=== PATIENT | female | born 1950 | race Caucasian/White ===

== ENCOUNTER 2022-05-31 02:43 | Emergency (ER) | payer BC, OTHER ==
[~2022-05-31] VITALS: Ht 167.6 cm; Wt 87.5 kg
[~2022-05-31 02:43] MED LIST: ASPI-1155 PO; GLIP5TAB13 PO; LISI10TA PO; METF-379 PO; PRAV40TA63 PO
[2022-05-31 02:56] VITALS: BP_SYST 154
[2022-05-31 03:44] LABS: BASOPHILS # (AUTO) 0.1 K/uL (0.0-0.2); BASOPHILS % (AUTO) 0.4 % (0.0-2.0); EOSINOPHILS # (AUTO) 0.3 K/uL (0.0-0.4); EOSINOPHILS % (AUTO) 2.8 % (0.0-4.0); HEMATOCRIT 35.9 % (36-48); HEMOGLOBIN 11.7 g/dL (12.0-16.0); LYMPHOCYTES # (AUTO) 2.7 K/uL (1.0-5.5); LYMPHOCYTES % (AUTO) 24.2 % (20.5-51.5); MEAN CORPUSCULAR HEMOGLOBIN 27 pg (27-31); MEAN CORPUSCULAR HGB CONC 33 % (32-36); MEAN CORPUSCULAR VOLUME 83 fL (79.0-98.0); MONOCYTES # (AUTO) 1.1 K/uL (0.0-1.0); MONOCYTES % (AUTO) 10.1 % (1.7-9.3); NEUTROPHILS % (AUTO) 62.5 % (40.0-70.0); PLATELET COUNT (AUTO) 411 K/uL (130-430); RED BLOOD CELL COUNT(AUTO) 4.35 MIL/uL (4.2-6.2); RED CELL DISTRIBUTION WIDTH 14.9 % (9.0-15.0); WHITE BLOOD COUNT (AUTO) 11.2 K/uL (4.8-10.8)
[2022-05-31 03:54] LABS: ANION GAP 10 (5-15); CALCIUM 9.4 mg/dL (8.4-11.0); CHLORIDE 100 mmol/L (98-107); CREATININE 0.95 mg/dL (0.55-1.30); GLUCOSE 232 mg/dL (70-99); UREA NITROGEN, BLOOD 17 mg/dL (8-21)
[2022-05-31] MEDS ORDERED: PRED20TA PO (03:57)
[2022-05-31] MEDS ORDERED: ZIT250 PO (03:57)
[2022-05-31] MEDS ORDERED: ALBMDI INH (03:57)
[2022-05-31 04:04] LABS: ALANINE AMINOTRANSFERASE 19 U/L (12-78); ALBUMIN 3.2 g/dL (3.4-4.8); ASPARTATE AMINOTRANSFERASE 19 U/L (10-37); TOTAL BILIRUBIN 0.3 mg/dL (0.0-1.0)
[2022-05-31] MEDS ORDERED: BENZONATATE 100 MG CAPSULE (TESSALON) PO ONE (04:15)
[2022-05-31 04:34] VITALS: BP_SYST 136
== END 2022-05-31 04:34 | disposition home or self-care (01) ==
LOC: SED 02:43
DX: J40 Bronchitis, not specified as acute or chronic (principal); J18.9 Pneumonia, unspecified organism; R05.9 Cough, unspecified; R09.81 Nasal congestion; R06.02 Shortness of breath; E11.9 Type 2 diabetes mellitus without complications; Z79.899 Other long term (current) drug therapy; Z20.822 Contact with and (suspected) exposure to COVID-19
CPT/HCPCS: 36415; 71045; 80053; 83880; 84484; 85025; 93005; 99285

== ENCOUNTER 2022-08-25 21:14 | Inpatient (IN) | payer OTHER ==
[~2022-08-25] VITALS: Ht 165.1 cm; Wt 86.6 kg
[~2022-08-25 21:14] MED LIST changes: +ALBMDI INH; +PRED20TA PO; +ZIT250 PO
[2022-08-25] MEDS ORDERED: NS 1000 ML IV.SOLN IV ONE (21:30)
[2022-08-25] MEDS ORDERED: cefTRIAXone 1 GM in D5W 50 ML IV ONE (21:30)
[2022-08-25 21:37] VITALS: BP_SYST 147; PULSE 119; RESP 32; TEMP 97.6; O2SAT 93
[2022-08-25] MEDS ORDERED: ONDANSETRON HCL 4 MG/2 ML VIAL IVP ONE (21:45)
[2022-08-25] MEDS ORDERED: cefTRIAXone 1 GM VIAL ONE (21:50)
[2022-08-25 22:08] LABS: BASOPHILS # (AUTO) 0.1 K/uL (0.0-0.2); BASOPHILS % (AUTO) 0.6 % (0.0-2.0); EOSINOPHILS % (AUTO) 0.3 % (0.0-4.0); HEMATOCRIT 41.6 % (36-48); HEMOGLOBIN 13.4 g/dL (12.0-16.0); LYMPHOCYTES # (AUTO) 1.7 K/uL (1.0-5.5); LYMPHOCYTES % (AUTO) 11.8 % (20.5-51.5); MEAN CORPUSCULAR HEMOGLOBIN 27 pg (27-31); MEAN CORPUSCULAR HGB CONC 32 % (32-36); MEAN CORPUSCULAR VOLUME 83 fL (79.0-98.0); MONOCYTES % (AUTO) 6.8 % (1.7-9.3); NEUTROPHILS # (AUTO) 11.6 K/uL (1.8-7.7); NEUTROPHILS % (AUTO) 80.5 % (40.0-70.0); PLATELET COUNT (AUTO) 354 K/uL (130-430); RED BLOOD CELL COUNT(AUTO) 5.05 MIL/uL (4.2-6.2); RED CELL DISTRIBUTION WIDTH 15.3 % (9.0-15.0); WHITE BLOOD COUNT (AUTO) 14.4 K/uL (4.8-10.8)
[2022-08-25 22:27] LABS: ALANINE AMINOTRANSFERASE 43 U/L (12-78); ALBUMIN 3.9 g/dL (3.4-4.8); ANION GAP 12 (5-15); ASPARTATE AMINOTRANSFERASE 50 U/L (10-37); CALCIUM 9.5 mg/dL (8.4-11.0); CHLORIDE 101 mmol/L (98-107); CREATININE 0.89 mg/dL (0.55-1.30); GLUCOSE 171 mg/dL (74-106); TOTAL BILIRUBIN 0.4 mg/dL (0.0-1.0); UREA NITROGEN, BLOOD 17 mg/dL (8-21)
[2022-08-25 22:29] LABS: LIPASE 186 U/L (73-393)
[2022-08-25 23:08] LABS: BILIRUBIN,URINE NEGATIVE (NEGATIVE); CLARITY/URINE CLEAR (CLEAR); COLOR,URINE YELLOW (YELLOW); GLUCOSE,URINE NEGATIVE (NEGATIVE); KETONES,URINE NEGATIVE (NEGATIVE); LEUKOCYTE ESTERASE ,URINE TRACE (NEGATIVE); NITRITE, URINE POSITIVE (NEGATIVE); PROTEIN URINE NEGATIVE (NEGATIVE); UROBILINOGEN,URINE 0.2 (0.2-1.0)
[2022-08-25 23:21] LABS: BLOOD, URINE TRACE (NEGATIVE)
[2022-08-25 23:29] LABS: BACTERIA,URINE FEW /HPF (None Seen)
[2022-08-26] MEDS ORDERED: ACETAMINOPHEN 325 MG TABLET PO ONE (00:30)
[2022-08-26] MEDS ORDERED: LIP10 PO (00:57)
[2022-08-26] MEDS ORDERED: GLIM1TAB PO (00:57)
[2022-08-26] MEDS ORDERED: BACL10TA PO (00:57)
[2022-08-26] MEDS ORDERED: FENO160 PO (00:57)
[2022-08-26] MEDS ORDERED: HYDROcodone/ACETAMIN 10-325 MG TAB PO PRN (05:30)
[2022-08-26] MEDS ORDERED: LORazepam 2 MG/ML VIAL IVP PRN (05:30)
[2022-08-26] MEDS ORDERED: ONDANSETRON HCL 4 MG/2 ML VIAL IVP PRN (05:30)
[2022-08-26] MEDS ORDERED: NALOXONE HCL 0.4 MG/ML AMP (NARCAN) IVP PRN ×2 (05:30)
[2022-08-26] MEDS ORDERED: HYDROcodone/ACETAMIN 5-325 MG TAB (NORCO/ VICODIN) PO PRN (05:30)
[2022-08-26] MEDS: NORMAL SALINE 5 ML DISP.SYRIN IVF SCH ×3 (06:00→22:20)
[2022-08-26] MEDS ORDERED: FENO145T PO (07:28)
[2022-08-26 07:30] LABS: BASOPHILS # (AUTO) 0.1 K/uL (0.0-0.2); BASOPHILS % (AUTO) 0.6 % (0.0-2.0); HEMATOCRIT 35.8 % (36-48); HEMOGLOBIN 11.7 g/dL (12.0-16.0); LYMPHOCYTES # (AUTO) 1.2 K/uL (1.0-5.5); LYMPHOCYTES % (AUTO) 12.9 % (20.5-51.5); MEAN CORPUSCULAR HEMOGLOBIN 27 pg (27-31); MEAN CORPUSCULAR HGB CONC 33 % (32-36); MEAN CORPUSCULAR VOLUME 82 fL (79.0-98.0); MONOCYTES # (AUTO) 0.7 K/uL (0.0-1.0); NEUTROPHILS # (AUTO) 7.1 K/uL (1.8-7.7); NEUTROPHILS % (AUTO) 78.5 % (40.0-70.0); PLATELET COUNT (AUTO) 275 K/uL (130-430); RED BLOOD CELL COUNT(AUTO) 4.37 MIL/uL (4.2-6.2); RED CELL DISTRIBUTION WIDTH 15.1 % (9.0-15.0)
[2022-08-26 07:43] LABS: ANION GAP 10 (5-15); CALCIUM 8.3 mg/dL (8.4-11.0); CHLORIDE 104 mmol/L (98-107); CREATININE 0.67 mg/dL (0.55-1.30); GLUCOSE 170 mg/dL (74-106); UREA NITROGEN, BLOOD 12 mg/dL (8-21)
[2022-08-26] MEDS: ACETAMINOPHEN 325 MG TABLET PO PRN ×2 (08:23→15:27)
[2022-08-26] MEDS: FENOFIBRATE NANOCRYSTALLIZED 48 MG TABLET (TRICOR) PO SCH (09:00)
[2022-08-26] MEDS: metFORMIN HCL 500 MG TABLET PO SCH ×2 (09:00→22:12)
[2022-08-26] MEDS: GLIMEPIRIDE 2 MG TABLET PO SCH (09:00)
[2022-08-26] MEDS: ASPIRIN 81 MG TAB.CHEW PO SCH (09:00)
[2022-08-26] MEDS: BACLOFEN 10 MG TABLET PO SCH ×3 (09:00→22:12)
[2022-08-26 11:15] VITALS: BP_SYST 135; PULSE 104; RESP 18; TEMP 97.6; O2SAT 98
[2022-08-26 12:15] VITALS: BP_SYST 135; PULSE 104; RESP 20; TEMP 97.6
[2022-08-26 15:32] VITALS: BP_SYST 140; PULSE 107; RESP 18; TEMP 98.9; O2SAT 96
[2022-08-26] MEDS: INSULIN REGULAR, HUMAN 100 UNITS/ML, 3 ML VIAL (humuLIN R) SUBCUT PRN ×2 (17:02→22:18)
[2022-08-26 19:50] VITALS: O2SAT 96
[2022-08-26] MEDS: LISINOPRIL 10 MG TABLET (PRINIVIL) PO SCH (22:12)
[2022-08-26] MEDS: ATORVASTATIN 10 MG TABLET PO SCH (22:12)
[2022-08-26] MEDS: cefTRIAXone 1 GM IVPB PREMIX 50 ML IV SCH (22:19)
[2022-08-27 00:12] VITALS: BP_SYST 132; PULSE 93; RESP 16; TEMP 97.2; O2SAT 94
[2022-08-27 05:51] LABS: BASOPHILS # (AUTO) 0.1 K/uL (0.0-0.2); BASOPHILS % (AUTO) 0.7 % (0.0-2.0); EOSINOPHILS % (AUTO) 0.4 % (0.0-4.0); HEMOGLOBIN 11.8 g/dL (12.0-16.0); LYMPHOCYTES # (AUTO) 1.9 K/uL (1.0-5.5); MEAN CORPUSCULAR HEMOGLOBIN 27 pg (27-31); MEAN CORPUSCULAR HGB CONC 33 % (32-36); MEAN CORPUSCULAR VOLUME 82 fL (79.0-98.0); MONOCYTES # (AUTO) 0.7 K/uL (0.0-1.0); MONOCYTES % (AUTO) 8.7 % (1.7-9.3); NEUTROPHILS # (AUTO) 4.8 K/uL (1.8-7.7); NEUTROPHILS % (AUTO) 65.2 % (40.0-70.0); PLATELET COUNT (AUTO) 275 K/uL (130-430); RED BLOOD CELL COUNT(AUTO) 4.38 MIL/uL (4.2-6.2); RED CELL DISTRIBUTION WIDTH 15.1 % (9.0-15.0); WHITE BLOOD COUNT (AUTO) 7.4 K/uL (4.8-10.8)
[2022-08-27 06:03] LABS: ANION GAP 10 (5-15); CALCIUM 8.8 mg/dL (8.4-11.0); CHLORIDE 104 mmol/L (98-107); CREATININE 0.74 mg/dL (0.55-1.30); GLUCOSE 148 mg/dL (74-106); UREA NITROGEN, BLOOD 8 mg/dL (8-21)
[2022-08-27] MEDS: NORMAL SALINE 5 ML DISP.SYRIN IVF SCH ×3 (06:58→21:37)
[2022-08-27 08:00] VITALS: O2SAT 96
[2022-08-27 08:52] VITALS: BP_SYST 115; PULSE 69; RESP 16; TEMP 97.2; O2SAT 18
[2022-08-27] MEDS: BACLOFEN 10 MG TABLET PO SCH ×2 (09:00→09:21)
[2022-08-27] MEDS: metFORMIN HCL 500 MG TABLET PO SCH ×2 (09:21→21:36)
[2022-08-27] MEDS: ASPIRIN 81 MG TAB.CHEW PO SCH (09:22)
[2022-08-27] MEDS: FENOFIBRATE NANOCRYSTALLIZED 48 MG TABLET (TRICOR) PO SCH (09:24)
[2022-08-27] MEDS: GLIMEPIRIDE 2 MG TABLET PO SCH (09:24)
[2022-08-27] MEDS: INSULIN REGULAR, HUMAN 100 UNITS/ML, 3 ML VIAL (humuLIN R) SUBCUT PRN ×2 (12:08→17:10)
[2022-08-27 15:37] VITALS: BP_SYST 111; PULSE 77; RESP 16; TEMP 97; O2SAT 97
[2022-08-27 19:45] VITALS: O2SAT 99
[2022-08-27 20:00] VITALS: BP_SYST 133; PULSE 79; RESP 16; TEMP 97.1; O2SAT 99
[2022-08-27] MEDS: LISINOPRIL 10 MG TABLET (PRINIVIL) PO SCH (21:37)
[2022-08-27] MEDS: ATORVASTATIN 10 MG TABLET PO SCH (21:37)
[2022-08-27] MEDS: cefTRIAXone 1 GM IVPB PREMIX 50 ML IV SCH (21:37)
[2022-08-28 01:00] VITALS: BP_SYST 130; PULSE 87; RESP 16; TEMP 97.2; O2SAT 98
[2022-08-28] MEDS: NORMAL SALINE 5 ML DISP.SYRIN IVF SCH (06:07)
[2022-08-28 06:53] LABS: BASOPHILS # (AUTO) 0.1 K/uL (0.0-0.2); BASOPHILS % (AUTO) 1.1 % (0.0-2.0); EOSINOPHILS # (AUTO) 0.2 K/uL (0.0-0.4); EOSINOPHILS % (AUTO) 3.5 % (0.0-4.0); HEMATOCRIT 38.1 % (36-48); HEMOGLOBIN 12.4 g/dL (12.0-16.0); LYMPHOCYTES # (AUTO) 2.9 K/uL (1.0-5.5); LYMPHOCYTES % (AUTO) 45.6 % (20.5-51.5); MEAN CORPUSCULAR HEMOGLOBIN 27 pg (27-31); MEAN CORPUSCULAR HGB CONC 33 % (32-36); MEAN CORPUSCULAR VOLUME 82 fL (79.0-98.0); MONOCYTES # (AUTO) 0.8 K/uL (0.0-1.0); MONOCYTES % (AUTO) 12.4 % (1.7-9.3); NEUTROPHILS # (AUTO) 2.4 K/uL (1.8-7.7); NEUTROPHILS % (AUTO) 37.4 % (40.0-70.0); PLATELET COUNT (AUTO) 296 K/uL (130-430); RED BLOOD CELL COUNT(AUTO) 4.64 MIL/uL (4.2-6.2); WHITE BLOOD COUNT (AUTO) 6.4 K/uL (4.8-10.8)
[2022-08-28 07:08] LABS: ERYTHROCYTE SEDIMENTATION RATE 40 MM/HR (0-20)
[2022-08-28 07:24] LABS: ALANINE AMINOTRANSFERASE 30 U/L (12-78); ALBUMIN 3.3 g/dL (3.4-4.8); ANION GAP 7 (5-15); ASPARTATE AMINOTRANSFERASE 36 U/L (10-37); CALCIUM 9.3 mg/dL (8.4-11.0); CHLORIDE 105 mmol/L (98-107); CREATININE 0.77 mg/dL (0.55-1.30); GLUCOSE 167 mg/dL (74-106); TOTAL BILIRUBIN 0.2 mg/dL (0.0-1.0); UREA NITROGEN, BLOOD 12 mg/dL (8-21)
[2022-08-28] MEDS: metFORMIN HCL 500 MG TABLET PO SCH (08:57)
[2022-08-28] MEDS: ASPIRIN 81 MG TAB.CHEW PO SCH (08:58)
[2022-08-28] MEDS: FENOFIBRATE NANOCRYSTALLIZED 48 MG TABLET (TRICOR) PO SCH (08:58)
[2022-08-28] MEDS: GLIMEPIRIDE 2 MG TABLET PO SCH (08:59)
[2022-08-28 10:10] VITALS: O2SAT 95
[2022-08-28] MEDS ORDERED: CIPR250T4 PO (10:56)
[2022-08-28 13:54] VITALS: BP_SYST 134; PULSE 89; RESP 17; TEMP 95.6; O2SAT 98
== END 2022-08-28 14:30 | disposition home or self-care (01) | DRG 872 ==
LOC: SED 21:14 → STU 08-26 00:50 → SMU 08-27 19:19
PROVIDERS: ADMIT Preventive Medicine Preventive Medicine/Occupational Environmental Medicine; ATTEND Specialist
DX: A41.9 Sepsis, unspecified organism (principal); N30.01 Acute cystitis with hematuria; E87.1 Hypo-osmolality and hyponatremia; E87.20 Acidosis, unspecified; I10 Essential (primary) hypertension; E78.5 Hyperlipidemia, unspecified; D72.829 Elevated white blood cell count, unspecified; E11.65 Type 2 diabetes mellitus with hyperglycemia; R74.01 Elevation of levels of liver transaminase levels; E88.09 Other disorders of plasma-protein metabolism, not elsewhere classified; Z20.822 Contact with and (suspected) exposure to COVID-19
CPT/HCPCS: 36415; 71045; 76376; 80048; 80053; 81000; 83605; 83690; 84484; 85025; 85651-TC; 87040; 87086; 93005; 96365; 96375; 99291; G0378; J0696; J2405

== ENCOUNTER 2022-09-13 18:46 | Emergency (ER) | payer OTHER ==
[~2022-09-13] VITALS: Ht 165.1 cm; Wt 85.3 kg
[2022-09-13 18:46] VITALS: BP_SYST 149; PULSE 118; RESP 25; TEMP 97.7; O2SAT 92
[~2022-09-13 18:46] MED LIST changes: +BACL10TA PO; +CIPR250T4 PO; +FENO145T PO; +GLIM1TAB PO; +LIP10 PO
[2022-09-13] MEDS ORDERED: cefTRIAXone 1 GM VIAL IM ONE (19:15)
[2022-09-13] MEDS ORDERED: NS 1000 ML IV.SOLN IV ONE (19:15)
[2022-09-13] MEDS ORDERED: CEFTRIAXONE SOD 1 GM/ D5W 50 ML IV ONE ×2 (19:30)
[2022-09-13 19:33] LABS: BASOPHILS # (AUTO) 0.1 K/uL (0.0-0.2); BASOPHILS % (AUTO) 0.8 % (0.0-2.0); EOSINOPHILS % (AUTO) 0.4 % (0.0-4.0); HEMATOCRIT 40.3 % (36-48); HEMOGLOBIN 13.1 g/dL (12.0-16.0); LYMPHOCYTES # (AUTO) 0.9 K/uL (1.0-5.5); LYMPHOCYTES % (AUTO) 7.7 % (20.5-51.5); MEAN CORPUSCULAR HEMOGLOBIN 27 pg (27-31); MEAN CORPUSCULAR HGB CONC 32 % (32-36); MEAN CORPUSCULAR VOLUME 82 fL (79.0-98.0); MONOCYTES # (AUTO) 0.7 K/uL (0.0-1.0); MONOCYTES % (AUTO) 6.4 % (1.7-9.3); NEUTROPHILS # (AUTO) 9.6 K/uL (1.8-7.7); NEUTROPHILS % (AUTO) 84.7 % (40.0-70.0); PLATELET COUNT (AUTO) 302 K/uL (130-430); RED BLOOD CELL COUNT(AUTO) 4.91 MIL/uL (4.2-6.2); RED CELL DISTRIBUTION WIDTH 15.2 % (9.0-15.0); WHITE BLOOD COUNT (AUTO) 11.3 K/uL (4.8-10.8)
[2022-09-13 19:49] LABS: ANION GAP 13 (5-15); CALCIUM 9.4 mg/dL (8.4-11.0); CHLORIDE 101 mmol/L (98-107); CREATININE 0.78 mg/dL (0.55-1.30); GLUCOSE 150 mg/dL (74-106); PROTHROMBIN TIME 10.7 SECS (9.5-12.5); UREA NITROGEN, BLOOD 16 mg/dL (8-21)
[2022-09-13] MEDS ORDERED: cefTRIAXone 1 GM VIAL ONE (19:52)
[2022-09-13 19:55] LABS: ALANINE AMINOTRANSFERASE 33 U/L (12-78); ALBUMIN 3.9 g/dL (3.4-4.8); ASPARTATE AMINOTRANSFERASE 44 U/L (10-37); LIPASE 287 U/L (73-393); TOTAL BILIRUBIN 0.5 mg/dL (0.0-1.0)
[2022-09-13] MEDS ORDERED: MAG-AL HYDROX/SIMETH 30 ML UDC PO ONE (20:15)
[2022-09-13] MEDS ORDERED: FAMOTIDINE PF 20 MG/2 ML VIAL IVP ONE (20:15)
[2022-09-13] MEDS ORDERED: ONDANSETRON HCL 4 MG/2 ML VIAL IVP ONE (20:15)
[2022-09-13 20:38] VITALS: O2SAT 98
[2022-09-13] MEDS ORDERED: MAG355OR21 PO (21:15)
[2022-09-13] MEDS ORDERED: ONDA-8 TL (21:15)
[2022-09-13 21:33] LABS: BILIRUBIN,URINE NEGATIVE (NEGATIVE); BLOOD, URINE NEGATIVE (NEGATIVE); CLARITY/URINE CLEAR (CLEAR); COLOR,URINE YELLOW (YELLOW); GLUCOSE,URINE NEGATIVE (NEGATIVE); KETONES,URINE NEGATIVE (NEGATIVE); LEUKOCYTE ESTERASE ,URINE NEGATIVE (NEGATIVE); NITRITE, URINE NEGATIVE (NEGATIVE); PROTEIN URINE NEGATIVE (NEGATIVE); UROBILINOGEN,URINE 0.2 (0.2-1.0)
[2022-09-13 22:23] VITALS: BP_SYST 132; PULSE 72; RESP 18; TEMP 97.7
== END 2022-09-13 22:23 | disposition home or self-care (01) ==
LOC: SED 18:46
DX: R11.2 Nausea with vomiting, unspecified (principal); R10.84 Generalized abdominal pain; R19.7 Diarrhea, unspecified; E11.9 Type 2 diabetes mellitus without complications; I10 Essential (primary) hypertension; Z79.899 Other long term (current) drug therapy
CPT/HCPCS: 99285; 96374; 71045; 96361; 96375; 80053; 83690; 85025; 85610; 85730; 87040; 87086; 84484; 36415; 93005; 83605; 81003; J0696; J3490; J2405; J7030